=== PATIENT | male | born 1950 | race American Indian/Alaskan Native ===

== ENCOUNTER 2019-06-02 05:39 | Day surgery (SDC) | payer OTHER ==
[~2019-06-02 05:39] MED LIST: LACTATED RINGERS 1,000 ML IV SCH
[2019-06-02] MEDS ORDERED: VERSED IV NR (06:00)
[2019-06-02] MEDS ORDERED: SUBLIMAZE IV PRN (06:00)
[2019-06-02] MEDS ORDERED: NEURONTIN PO NR (06:00)
[2019-06-02] MEDS ORDERED: DILAUDID IV PRN (06:58)
[2019-06-02] MEDS ORDERED: ANCEF/STERILE WATER 2 GM/20 ML 2 GM/20 ML SYRINGE IV SCH (07:00)
--- NOTE | 2019-06-02 07:00 | Anesthesia Consultation ---
Anesthesia Consult and Med Hx Date of service: 06/02/19 - Airway Anesthetic Teeth Evaluation: Partials ROM Head & Neck: Adequate Mental/Hyoid Distance: Adequate Mallampati Class: Class III Intubation Access Assessment: Possibly Difficult - Pulmonary Exam CTA: Yes - Cardiac Exam Cardiac Exam: RRR - Pre-Operative Health Status ASA Pre-Surgery Classification: ASA1 Proposed Anesthetic Plan: General - Pulmonary Hx Smoking: No Hx Respiratory Symptoms: No Hx Sleep Apnea: No (JEREMÍAS PRE SCREEN LOW RISK) - Cardiovascular System Hx Hypertension: No Hx Heart Attack/AMI: No Hx Percutaneous Transluminal Coronary Angioplasty (PTCA): No Hx Cardia Arrhythmia: No - Central Nervous System Hx Seizures: No CVA: No - Gastrointestinal Hx Gastroesophageal Reflux Disease: No - Endocrine Hx Renal Disease: No Hx Liver Disease: No Hx Insulin Dependent Diabetes: No Hx Non-Insulin Dependent Diabetes: No Hx Thyroid Disease: No - Other Systems Hx Obesity: No - Additional Comments Anesthesia Medical History Comments: No hx anesthetic complications.
--- NOTE | 2019-06-02 07:00 | Anesthesia Day of Surgery ---
Anesthesia Day of Surgery - Day of Surgery Patient Examined: Yes Patient H&P Reviewed: Yes Patient is NPO: Yes
[2019-06-02] MEDS ORDERED: MARCAINE-EPI 0.25%-1:200,000 INFILTRATI ONE (07:23)
[2019-06-02] MEDS ORDERED: DECADRON ONE ×2 (07:23→09:55)
[2019-06-02] MEDS ORDERED: SUBLIMAZE ONE (07:26)
[2019-06-02] MEDS ORDERED: DIPRIVAN 10 MG/ML IV ONE (07:26)
[2019-06-02] MEDS ORDERED: MARCAINE 0.5% INFILTRATI ONE (07:28)
[2019-06-02] MEDS ORDERED: XYLOCAINE 1% 20 mL ONE (07:28)
[2019-06-02] MEDS ORDERED: BRIDION IV ONE (09:53)
[2019-06-02] MEDS ORDERED: ROBINUL ONE (09:55)
[2019-06-02] MEDS ORDERED: QUELICIN ONE (09:55)
[2019-06-02] MEDS ORDERED: LACTATED RINGERS 1,000 ML ONE (09:55)
[2019-06-02] MEDS ORDERED: ZEMURON IV ONE (09:55)
[2019-06-02] MEDS ORDERED: ZOFRAN ONE (09:55)
[2019-06-02] MEDS ORDERED: XYLOCAINE MPF 2% ONE (09:55)
[2019-06-02] MEDS ORDERED: NACL 0.9% IR ONE (10:00)
--- NOTE | 2019-06-02 10:16 | Short Stay Summary ---
Short Stay Documentation Date of service: 06/02/19 - History Principal diagnosis: ventral hernia H&P: obtained from office - Allergies and Medications Current Medications: Allergies No Known Allergies Allergy (Verified 05/25/19 14:22) Home Medications Medication Instructions Recorded Confirmed Last Taken Type diphenhydrAMINE [Benadryl CAP] 25 mg PO Q8HR PRN 05/25/19 05/25/19 Unknown History Active Medications Celecoxib (Celebrex) 200 mg PO PREOP NR Stop: 06/02/19 23:59 Last Admin: 06/02/19 07:21 Dose: 200 mg Documented by: Fentanyl (Sublimaze) 100 mcg IV ONCE PRN PRN Reason: sedation for nerve block Last Admin: 06/02/19 07:32 Dose: 100 mcg Documented by: Gabapentin (Neurontin) 300 mg PO PREOP NR Stop: 06/02/19 23:59 Last Admin: 06/02/19 07:21 Dose: 300 mg Documented by: Hydromorphone HCl (Dilaudid) 0.5 mg IV Q10MIN PRN PRN Reason: Pain , Severe (7-10) Stop: 06/02/19 20:00 Lactated Ringer's (Lactated Ringers) 1,000 mls @ 100 mls/hr IV DIRECT ERIK Last Admin: 06/02/19 07:29 Dose: 100 mls/hr Documented by: Cefazolin Sodium (Ancef/Sterile Water 2 Gm/20 Ml) 2 gm in 20 mls @ 40 mls/hr IV PREOP ERIK; Protocol Stop: 06/02/19 23:00 Midazolam HCl (Versed) 2 mg IV PREOP NR Stop: 06/02/19 23:59 Last Admin: 06/02/19 07:31 Dose: 2 mg Documented by: - Brief post op/procedure progress note Date of procedure: 06/02/19 Pre-op diagnosis: ventral hernia Post-op diagnosis: same Procedure: robotic assisted ventral hernia repair with mesh Anesthesia: GETA, other (KAMLA BLOCK) Findings: 3 CM hernia defect, containing omentum and preperitoneal fat Surgeon: TOPHER BOWEN Morning Show Producer: MAXIMINO NICOLE Estimated blood loss: minimal Pathology: none Condition: stable - Hospital course Hospital course: Pt observed in PACU and discharged to home in stable condition when criteria met. - Disposition Condition at discharge: Good Disposition: DC-01 TO HOME OR SELFCARE Short Stay Discharge Plan Activity: other (no heavy lifting) Diet: regular Wound: open to air, per your surgeon's advice Additional Instructions: SEE PRINTED DISCHARGE INSTRUCTIONS Follow up with: MONTSERRAT MIDDLETON MD [Primary Care Provider] - 7 Days TOPHER BOWEN DO [Staff Physician] - 14 Days Prescriptions: Ibuprofen [Motrin 800 MG tab] 800 mg PO Q8HR #30 tablet HYDROcodone/APAP 5-325 [[place] 5/325] 1 each PO Q4HR PRN #20 tablet PRN Reason: Pain , Severe (7-10)
--- NOTE | 2019-06-02 13:09 | Post Anesthesia Evaluation ---
- Post Anesthesia Evaluation Patient Participated: Yes Airway Patent: Yes Stable Respiratory Function: Yes Nausea/Vomiting: No Temp > 96.8F: Yes Pain Manageable: Yes Adequeate Hydration: Yes Anesthesia Complications: No
--- NOTE | 2019-06-02 13:47 | Operative Report ---
PREOPERATIVE DIAGNOSIS: Ventral hernia. POSTOPERATIVE DIAGNOSIS: Ventral hernia. PROCEDURE: Robotic-assisted ventral hernia repair with mesh. ANESTHESIA: General endotracheal anesthesia, TAP block. FINDINGS: A 3 cm hernia defect containing omentum and preperitoneal fat. SURGEON: Arabella Aponte DO. BLAST FURNACE HELPER: Kaur Salinas MD. ESTIMATED BLOOD LOSS: Minimal. PATHOLOGY: None. CONDITION DISPOSITION: The patient is stable to PACU. HISTORY OF PRESENT ILLNESS AND INDICATION: The patient is a 68-year-old male who presented to the surgery clinic with complaints of a bulge above his belly button. The patient was found to have a ventral hernia. The patient had also been to [facility] recently with complaints of abdominal pain, was diagnosed with possible bowel obstruction. A CT scan obtained at [facility] did demonstrate the hernia. The hernia at that time was not the cause for the obstruction. When the patient was seen in the office, the hernia was reducible without tenderness. The patient elected to have it repaired. All risks, benefits, and alternatives of surgery were discussed with him and consent obtained. All questions were answered. PROCEDURE IN DETAIL: The patient was identified in preoperative area and taken back to the operating room and placed on the operating table in supine position. After anesthesia was induced, both arms were tucked and all bony prominences were padded. The abdomen was prepped and draped in the usual sterile fashion. Timeout was performed. A small yanira incision was made in the left upper quadrant at Bray's point through which a Veress needle was inserted. The Veress needle positioning was confirmed using the saline drop test. Once the abdomen was insufflated to 15 mmHg, a 5 mm Optiview trocar was placed through an incision in the right upper quadrant. The abdomen was inspected and there was no underlying injury to any of the abdominal structures. The Veress needle was identified and there was no injury in its tract. The Veress needle was removed. An additional 12 mm right mid lateral abdominal trocar was placed under direct visualization as well as a right lower quadrant 8 mm robotic trocar. The 5 mm trocar was removed and replaced under direct visualization with the 8 mm robotic trocar. A Ray-Elkin was placed into the abdomen and the robot was then docked. A fenestrated bipolar grasper was placed in arm #2 and a monopolar scissors in arm #1 and the surgeon was transferred to the console. The hernia was identified directly superior to the umbilicus and there was some incarcerated omentum. The omentum was carefully reduced from the hernia sac and some chronic adhesions to the peritoneum were taken down using the monopolar scissors. The omentum was checked for hemostasis, which was carefully ensured. I then turned my attention to creating a preperitoneal flap. The peritoneum was scored to the right hand side of the hernia in a cephalad to caudad direction. The preperitoneal plane was then created in an avascular plane. The flap was extended towards the left side until the hernia contents were encircled. The hernia sac was then carefully reduced circumferentially and all preperitoneal fat incarcerated in the hernia was also reduced. Once all the hernia contents were reduced, the flap was carried out further laterally towards the left in order to accommodate the mesh. There was a large defect in part of the peritoneum at the flap and therefore, a coated mesh was chosen to repair the hernia. The hernia defect itself measured 3 cm x 3 cm. The hernia defect was closed using 0 V-Loc running suture. An 11 cm Bard Ventralight coated mesh was used to repair the defect. It was placed into the pocket with the coated side facing the peritoneum. The mesh was sutured in all 4 quadrants using 2-0 Vicryl interrupted sutures. The mesh was seen to lay flat against the abdominal wall. The peritoneum was then reapproximated using 3-0 V-Loc running suture. The peritoneal defect was closed using a 2-0 Vicryl continuous suture by incorporating the hernia sac into the repair to plug the hole. The robot was then undocked and all needles and foreign material removed from the abdomen including the Ray-Elkin placed at the beginning of surgery. The abdomen was then checked for hemostasis and the 12 mm port removed. The 12 mm port fascia was closed with interrupted 0 Vicryl suture using the Andrew-Trent device. The abdomen was then desufflated and the remaining ports were removed. The skin incisions were closed with 4-0 Monocryl subcuticular stitches and skin glue. A balled up 4 x 4 fluff gauze compression dressing was placed superior to the umbilicus in order to compress the skin. This was secured with a Tegaderm. An abdominal binder was applied at the end of the case. At the end of the case, all sponge, instrument, sharp counts were correct x 2. The patient was awoken from anesthesia, extubated, and taken to PACU in stable condition. JOB# [id number] BERTHA/OTF FREITAS
[2019-06-02 14:49] VITALS: BP 108/78
== END 2019-06-02 05:40 | disposition home or self-care (01) ==
LOC: OR 05:39
PROVIDERS: ATTEND Surgery
DX: K43.6 Other and unspecified ventral hernia with obstruction, without gangrene (principal); Z79.899 Other long term (current) drug therapy; Z87.442 Personal history of urinary calculi; Z98.890 Other specified postprocedural states
CPT/HCPCS: 49653; C1781; J0330; J0690; J1100; J2250; J2405; J2704; J3010; J7120